=== PATIENT | female | born 1950 | race Caucasian/White ===

== ENCOUNTER 2018-01-20 12:23 | Outpatient (CLI) | payer MEDICARE | END 2018-01-20 12:24 | disposition home or self-care (01) | LOC: BICMAMMO 12:23 | PROVIDERS: ATTEND Family Medicine | DX: Z12.31 Encounter for screening mammogram for malignant neoplasm of breast (principal) | CPT/HCPCS: 77063; 77067 ==

== ENCOUNTER 2019-02-21 09:15 | Outpatient (CLI) | payer MEDICARE ==
--- NOTE | 2019-02-21 11:43 | RAD ---
CERVICAL SPINE SERIES 5 VIEEWS WITH OBLIQUES: Date: 02/21/19 HISTORY: Neck pain. Occipital neuralgia. FINDINGS: There is slight reversal to the normal cervical curve. There is degenerative disc narrowing at the C3 -4 level with retrolisthesis of approximately 3-4 mm. There is also mild disc narrowing at C5-6 and C 6-7. There are degenerative facet changes present. There is suggestion of some foraminal narrowing at the C3-4 level on the right. IMPRESSION: Arthritic changes of the spine. POS: TPC
== END 2019-02-21 09:16 | disposition home or self-care (01) ==
LOC: SCSRAD 09:15
PROVIDERS: ATTEND Psychiatry & Neurology Neurology
DX: M54.81 Occipital neuralgia (principal); M46.92 Unspecified inflammatory spondylopathy, cervical region
CPT/HCPCS: 72050

== ENCOUNTER 2019-07-06 13:18 | Outpatient (CLI) | payer MEDICARE ==
--- NOTE | 2019-07-06 14:03 | BD ---
DEXA SCAN: 07/06/2019 PROVIDED CLINICAL HISTORY: Postmenopausal screening. LUMBAR SPINE BMD (g/cm2) T-SCORE L1 0.997 0.1 L2 1.268 2.2 L3 1.484 3.6 L4 1.405 3.1 TOTAL 1.290 2.2 FEMORAL NECK 0.804 -0.4 TOTAL 1.027 0.7 IMPRESSION: Calculated bone mineral density meets WHO criteria for normal. POS: TPC
--- NOTE | 2019-07-06 15:27 | MMO ---
Bilateral MAMMO Bilat Screen [facility]. CLINICAL HISTORY: Patient is 69 years old and is seen for screening. The patient has no family history of breast cancer. The patient has no personal history of cancer. VIEWS: The views performed were: bilateral craniocaudal with tomosynthesis and bilateral mediolateral oblique with tomosynthesis. FILMS COMPARED: The present examination has been compared to prior imaging studies performed at [facility] on 12/28/2014, 11/19/2016 and 01/20/2018, and at [facility] on 08/03/2009. This study has been interpreted with the assistance of computer-aided detection. MAMMOGRAM FINDINGS: The breasts are heterogeneously dense, which could obscure a lesion on mammography. Finding 1: There are stable benign appearing calcifications seen in both breasts. Finding 2: There are stable benign appearing densities seen in both breasts. There are no suspicious masses, suspicious calcifications, or new areas of architectural distortion. IMPRESSION: THERE IS NO MAMMOGRAPHIC EVIDENCE OF MALIGNANCY. A ROUTINE FOLLOW-UP MAMMOGRAM IN 1 YEAR IS RECOMMENDED. THE RESULTS OF THIS EXAM WERE SENT TO THE PATIENT. ACR BI-RADS Category 2 - Benign finding MAMMOGRAPHY NOTE: 1. A negative mammogram report should not delay a biopsy if a dominant of clinically suspicious mass is present. 2. Approximately 10% to 15% of breast cancers are not detected by mammography. 3. Adenosis and dense breasts may obscure an underlying neoplasm. Reported by: RASHMI GREEN MD Electonically Signed: [id number]
== END 2019-07-06 13:19 | disposition home or self-care (01) ==
LOC: BICMAMMO 13:18
PROVIDERS: ATTEND Family Medicine
DX: Z12.31 Encounter for screening mammogram for malignant neoplasm of breast (principal); Z78.0 Asymptomatic menopausal state
CPT/HCPCS: 77063; 77067; 77080

== ENCOUNTER 2020-10-01 13:44 | Outpatient (CLI) | payer MEDICARE ==
[~2020-10-01 13:44] MED LIST: Magnevist 469MG/ML 20 ML VIAL ONE
== END 2020-10-01 13:45 | disposition home or self-care (01) ==
LOC: BICMRI 13:44
PROVIDERS: ATTEND Psychiatry & Neurology Neurology
DX: H93.12 Tinnitus, left ear (principal); M54.5 Low back pain; M47.816 Spondylosis without myelopathy or radiculopathy, lumbar region; I67.82 Cerebral ischemia
CPT/HCPCS: 70553; 72100; 82565; A9579

== ENCOUNTER 2021-03-24 09:40 | Outpatient (CLI) | payer MEDICARE | END 2021-03-24 09:41 | disposition home or self-care (01) | LOC: BICMAMMO 09:40 | PROVIDERS: ATTEND Internal Medicine Gastroenterology | DX: Z13.820 Encounter for screening for osteoporosis (principal); K74.3 Primary biliary cirrhosis | CPT/HCPCS: 77080 ==

== ENCOUNTER 2023-01-14 09:46 | Outpatient (CLI) | payer OTHER | END 2023-01-14 09:47 | disposition home or self-care (01) | LOC: BICMAMMO 09:46 | PROVIDERS: ATTEND Family Medicine Sports Medicine | DX: Z12.31 Encounter for screening mammogram for malignant neoplasm of breast (principal) | CPT/HCPCS: 77063; 77067 ==

== ENCOUNTER 2023-04-12 09:44 | Outpatient (CLI) | payer OTHER | END 2023-04-12 09:45 | disposition home or self-care (01) | LOC: RAD 09:44 | PROVIDERS: ATTEND Internal Medicine | DX: R13.10 Dysphagia, unspecified (principal); K21.9 Gastro-esophageal reflux disease without esophagitis | CPT/HCPCS: 74230 ==

== ENCOUNTER 2025-03-12 14:19 | Emergency (ER) | payer MEDICARE, OTHER ==
[~2025-03-12 14:19] MED LIST changes: +Iopamidol-370 76% 500 ML MDV (1 ML CHARGE) ONE; -Magnevist 469MG/ML 20 ML VIAL ONE
[2025-03-12 16:47] LABS: #Basophils 0.08 10x3/uL (0.0-0.2); #Eosinophils 0.19 10x3/uL (0.0-0.7); #Monocytes 0.88 10x3/uL (0.11-0.59); #Neutrophils 5.25 10x3/uL (1.40-6.50); %Basophils 0.9 % (0.0-1.0); %Eosinophils 2.2 % (0.0-10.0); %Lymphocytes 24.6 % (21.0-51.0); %Monocytes 10.3 % (0.0-10.0); %Neutrophils 61.6 % (42.0-75.0); Hematocrit 36.6 % (36.0-47.0); Hemoglobin 12.9 g/dL (12.0-16.0); Mean Corpuscular Hemoglobin 33.2 pg (27.0-31.0); Mean Corpuscular Volume 94.3 fL (78.0-98.0); Platelet Count 186 10x3/uL (130-400); Red Blood Cell (RBC) Count 3.88 mill/uL (4.20-5.40); White Blood Cell (WBC) Count 8.53 10x3/uL (4.8-10.8)
[2025-03-12 17:31] LABS: ALT (SGPT) 21 U/L (Less than 34); AST (SGOT) 40 U/L (11-34); Albumin 3.8 g/dL (3.1-4.5); Alkaline Phosphatase 114 U/L (40-110); Anion Gap 17 mmol/L (10-20); BUN (Urea Nitrogen) 20 mg/dL (9.8-20.1); Bilirubin, Total 0.4 mg/dL (0.3-1.2); Calc. Creatinine Clearance 0 mL/min (70-130); Calcium 9.1 mg/dL (7.8-10.44); Carbon Dioxide 16 mmol/L (23-31); Chloride 109 mmol/L (98-107); Globulin 3.3 g/dL (2.4-3.5); Glucose 82 mg/dL (83-110); Lipase 45 U/L (8-78); Potassium 3.4 mmol/L (3.5-5.1); Sodium 139 mmol/L (136-145)
[2025-03-12 17:55] LABS: Bacteria/HPF None Seen HPF (None Seen); CAUTI Indications for Culture Pelvic or flank pain; Glucose, Urine (Dipstick) Normal (Negative); Leukocyte 250 Leu/uL (Negative); Protein, Urine (Dipstick) Negative (Neg-Trace); RBC/HPF 0-3 HPF (0-3); Specific Gravity, Urine 1.012 (1.002-1.036)
[2025-03-12 17:56] LABS: Urine Culture Reflex No No
[2025-03-12 20:53] LABS: Actual Bicarbonate (HCO3v) 19.0 mEq/L (22-28); Base Excess -7.9 mEq/L (-2.0 to +3.0); Calcium, Ionized (venous) 1.14 mmol/L (1.16-1.32); Chloride (VBG) 110 mmol/L (98-106); Hematocrit-VBG 38 % (36.0-47.0); Hemoglobin (Hb) 12.8 g/dL (11.7-16.1); Potassium (VBG) 3.46 mmol/L (3.70-5.30); Sodium 139 mmol/L (133-146)
== END 2025-03-12 21:39 | disposition home or self-care (01) ==
LOC: ERS 14:19
DX: E86.0 Dehydration (principal); R19.7 Diarrhea, unspecified; Z87.891 Personal history of nicotine dependence
CPT/HCPCS: 36415; 74177; 80053; 81001; 82805; 83605; 83690; 85025; 96360; Q9967

== ENCOUNTER 2025-04-05 09:07 | Outpatient (CLI) | payer OTHER | END 2025-04-05 09:08 | disposition home or self-care (01) | LOC: BICMAMMO 09:07 | PROVIDERS: ATTEND Family Medicine Sports Medicine | DX: Z12.31 Encounter for screening mammogram for malignant neoplasm of breast (principal) | CPT/HCPCS: 77063; 77067 ==